=== PATIENT | female | born 2000 | race Caucasian/White ===

== ENCOUNTER 2023-08-18 05:30 | Emergency (ER) | payer MEDICAID ==
[~2023-08-18] VITALS: Ht 154.9 cm; Wt 67.8 kg
[2023-08-18 05:41] VITALS: O2SAT 97
[2023-08-18 06:41] LABS: BASOPHILS % 0.2 % (0.0-2.0); EOSINOPHILS % 0.1 % (0.0-5.0); HEMATOCRIT. 41.1 % (36.0-48.0); HEMOGLOBIN. 13.9 g/dL (12.0-16.0); LYMPHOCYTES % 11.1 % (20.0-50.0); MEAN CORPUSCULAR HEMOGLOBIN 31.6 pg (28.0-32.0); MEAN CORPUSCULAR HGB CONC 33.8 g/dL (31.0-37.0); MEAN CORPUSCULAR VOLUME 93.3 fL (81.0-99.0); MEAN PLATELET VOLUME 8.4 fl (7.4-10.4); MONOCYTES % 5.4 % (2.0-8.0); NEUTROPHILS % 83.2 % (40.0-76.0); PLATELET 252 x1000/uL (130-400); RED BLOOD CELL COUNT 4.41 mill/uL (4.2-5.4); RED CELL DISTRIBUTION WIDTH 13.7 % (11.6-14.6); WHITE BLOOD COUNT 15.3 x1000/uL (4.5-11.0)
[2023-08-18 06:47] LABS: ALANINE AMINOTRANSFERASE 12 IU/L (10-49); ALBUMIN 4.4 g/dL (3.2-4.8); ASPARTATE AMINOTRANSFERASE 14 IU/L (<34); BILIRUBIN TOTAL 0.7 mg/dL (0.1-1.0); CALCIUM 9.3 mg/dL (8.7-10.4); CARBON DIOXIDE 25 mEq/L (21-32); CHLORIDE 106 mEq/L (98-107); CREATININE 0.6 mg/dL (0.6-1.0); GLUCOSE 104 mg/dL (70-105); POTASSIUM 3.9 mEq/L (3.5-5.1); PROTEIN TOTAL 7.6 g/dL (6.0-8.3); SODIUM 137 mEq/L (136-145); UREA NITROGEN BLOOD 6 mg/dL (9-23)
[2023-08-18 07:16] LABS: HCG SCREEN NEGATIVE
[2023-08-18] MEDS ORDERED: KETOROLAC 30MG/ML VIAL IV STA (07:17)
[2023-08-18 07:21] LABS: CLARITY URINE CLOUDY (CLEAR); COLOR URINE DARK YELLOW (YELLOW); GLUCOSE URINE NEGATIVE (NEGATIVE); KETONES URINE TRACE (NEGATIVE); LEUKOCYTE ESTERASE URINE 1+ (NEGATIVE); NITRITE URINE NEGATIVE (NEGATIVE); OCCULT BLOOD URINE TRACE (NEGATIVE); PH URINE 7.5 (4.5-8.0); PROTEIN URINE 2+ (NEGATIVE); SPECIFIC GRAVITY URINE 1.028 (1.005-1.030)
[2023-08-18] MEDS ORDERED: SODIUM CHLORIDE 0.9% 1,000 ML IV ONE (07:30)
[2023-08-18 07:38] LABS: BACTERIA URINE 2+; MUCUS URINE 2+ /lpf (< = 2+); SQUAMOUS EPITHELIAL CELL URINE 3+ /lpf (RARE/1+); YEAST URINE NONE SEEN
[2023-08-18] MEDS ORDERED: IOHEXOL-300 100 ML BOTTLE ONE (08:17)
[2023-08-18] MEDS ORDERED: CEFTRIAXONE 1GM PREMIX 50 ML IV STA (09:20)
[2023-08-18] MEDS ORDERED: CIPR-263 MT (11:24)
[2023-08-18] MEDS ORDERED: IBUP-2028 MT (11:24)
[2023-08-18 11:45] VITALS: BP 135/73; PULSE 95; RESP 18; TEMP 98.7
== END 2023-08-18 11:48 | disposition home or self-care (01) ==
LOC: ER 05:30
DX: N39.0 Urinary tract infection, site not specified (principal)
CPT/HCPCS: 99285; 74177; 96365; 76705; 96361; 96366; 96375; 80053; 81003; 81025; 84703; 83690; 85025; 36415; Q9967; J0696; J1885; J7030

== ENCOUNTER 2023-12-11 11:13 | Emergency (ER) | payer MEDICAID ==
[~2023-12-11] VITALS: Ht 154.9 cm; Wt 75.0 kg
[~2023-12-11 11:13] MED LIST: CIPR-263 MT; IBUP-2028 MT
[2023-12-11 11:15] VITALS: O2SAT 99
[2023-12-11] MEDS: LIDOCAINE 5% PATCH TOP SCH (12:05)
[2023-12-11] MEDS: KETOROLAC 15MG/ML VIAL IM ONE (12:05)
[2023-12-11 14:22] LABS: CLARITY URINE CLOUDY (CLEAR); COLOR URINE YELLOW (YELLOW); GLUCOSE URINE NEGATIVE (NEGATIVE); KETONES URINE TRACE (NEGATIVE); LEUKOCYTE ESTERASE URINE NEGATIVE (NEGATIVE); NITRITE URINE NEGATIVE (NEGATIVE); OCCULT BLOOD URINE NEGATIVE (NEGATIVE); PH URINE 6.5 (4.5-8.0); PROTEIN URINE NEGATIVE (NEGATIVE); SPECIFIC GRAVITY URINE 1.027 (1.005-1.030)
[2023-12-11 14:30] VITALS: BP 125/74; PULSE 68; RESP 17; TEMP 98.5
[2023-12-11] MEDS ORDERED: LIDO700A15 TP (14:33)
[2023-12-11] MEDS ORDERED: NAPR-1176 MT (14:33)
[2023-12-11 15:01] LABS: BACTERIA URINE 2+; SQUAMOUS EPITHELIAL CELL URINE 2+ /lpf (RARE/1+); YEAST URINE NONE SEEN
== END 2023-12-11 14:58 | disposition home or self-care (01) ==
LOC: ER 11:15
DX: M54.50 Low back pain, unspecified (principal); M54.6 Pain in thoracic spine
CPT/HCPCS: 81003; 81025; 96372; 99283; J1885; Z7610 ×2